=== PATIENT | female | born 1985 | race African-American/Black ===

== ENCOUNTER 2017-05-19 13:49 | Emergency (ER) | payer SELFPAY ==
--- NOTE | 2017-05-19 14:52 | UC ---
Respiratory Complaint HPI - HPI Summary HPI Summary: 6 DAYS OF COUGH AND CHEST TIGHTNESS WITH COUGH. NO SOB. NO FEVER, ST, EAR PAIN , N/V/D. [facility] AND GIVEN PCN VK. STATES SHE DOES NOT FEEL LIKE IT IS WORKING. IS 2 MONTHS . - History of Current Complaint Chief Complaint: UCRespiratory Stated Complaint: COUGH Time Seen by Provider: 05/19/17 14:37 Hx Obtained From: Patient Hx Last Menstrual Period: 03/20/17 Onset/Duration: Gradual Onset, Lasting Days, Still Present Timing: Constant Severity Initially: Moderate Severity Currently: Moderate Pain Intensity: 4 Pain Scale Used: 0-10 Numeric Character: Cough: Productive - OCCASIONALLY Aggravating Factors: Nothing Alleviating Factors: Nothing Associated Signs And Symptoms: Positive: URI. Negative: Dyspnea, Fever, Chills , Pleuritic Chest Pain, Wheezing, Hemoptysis, Dizziness, Calf Pain, Calf Swelling, Edema, Nasal Congestion, Hoarseness, Sinus Discomfort - Allergies/Home Medications Allergies/Adverse Reactions: Allergies Allergy/AdvReac Type Severity Reaction Status Date / Time No Known Allergies Allergy Verified 05/19/17 13:53 Home Medications: Home Medications Penicillin VK TAB* [Penicillin VK 250 mg Tab*] 250 mg PO QID 05/19/17 [History Confirmed 05/19/17] PMH/Surg Hx/FS Hx/Imm Hx Previously Healthy: Yes - Surgical History Surgical History: None - Family History Known Family History: Negative: Hypertension, Diabetes - Social History Alcohol Use: None Substance Use Type: None Smoking Status (MU): Never Smoked Tobacco Review of Systems Constitutional: Negative Respiratory: Cough Cardiovascular: Negative Gastrointestinal: Negative Genitourinary: Negative All Other Systems Reviewed And Are Negative: Yes Physical Exam Triage Information Reviewed: Yes Appearance: Well-Appearing, No Pain Distress, Well-Nourished Vital Signs: Initial Vital Signs Temp 98.6 F 05/19/17 13:55 Pulse 85 05/19/17 13:55 Resp 18 05/19/17 13:55 Pulse Ox 100 05/19/17 13:55 Vital Signs Reviewed: Yes Eyes: Positive: Conjunctiva Clear ENT: Positive: Hearing grossly normal, Pharynx normal, TMs normal Neck: Positive: Supple, Nontender, No Lymphadenopathy Respiratory Exam: Normal Cardiovascular Exam: Normal Abdomen Description: Positive: Soft Musculoskeletal: Positive: No Edema Neurological: Positive: Alert Psychological: Positive: Age Appropriate Behavior Skin: Negative: rashes UC Diagnostic Evaluation - Laboratory O2 Sat by Pulse Oximetry: 100 Respiratory Course/Dx - Differential Dx/Diagnosis Provider Diagnoses: ACUTE URI Discharge - Discharge Plan Condition: Stable Disposition: HOME Prescriptions: Albuterol HFA INHALER* [Ventolin HFA Inhaler*] 2 puff INH Q4H PRN #1 mdi PRN Reason: Shortness Of Breath Patient Education Materials: Upper Respiratory Infection (ED) Referrals: Carmencita Templeton MD [Medical Doctor] - As Soon As Possible Additional Instructions: ACUTE UPPER RESPIRATORY INFECTION The common cold is a benign self-limited syndrome representing a group of diseases caused by members of several families of viruses. It is the most frequent acute illness in the [place] and throughout the industrialized world. The term "common cold" refers to a mild upper respiratory viral infection involving, to variable degrees, nasal congestion and discharge ( rhinorrhea), sneezing, sore throat, cough, low-grade fever, headache, and malaise. Symptomatic therapy remains the mainstay of common cold treatment. In the absence of convincing evidence of a secondary bacterial infection, antibiotics are not effective in the treatment of the common cold and should not be prescribed. Be advised that the usual course and duration of illness is up to one and a half weeks for patients with a cold, but can last slightly longer; symptoms usually persist longer in smokers. ILLNESS TENDS TO LAST LONGER IN WELL DUE TO YOUR RELATIVE STATE OF IMMUNOSUPPRESSION. FINISH YOUR ANTIBIOTIC TO COMPLETE COURSE. INHALER PRESCRIBED TO HELP OPEN YOUR AIRWAYS. WOULD AVOID UNNECESSARY MEDICATIONS IN ESPECIALLY IN FIRST TRIMESTER. TAKE A VITAMIN WITH 200MG DHA DAILY. I LIKE THE NATURE [employer]ADE BRAND NO NSAIDS IN (IBUPROFEN, NAPROXEN). OKAY TO TAKE ACETAMINOPHEN. FOLLOW-UP WITH [employer].
== END 2017-05-19 15:10 | disposition home or self-care (01) ==
LOC: UCEAST 13:49
DX: J06.9 Acute upper respiratory infection, unspecified (principal)
CPT/HCPCS: 99202; G0463

== ENCOUNTER 2017-05-23 16:44 | Emergency (ER) | payer OTHER ==
[2017-05-23 16:51] VITALS: BP 107/46
--- NOTE | 2017-05-23 17:20 | UC ---
Abdominal Pain Female HPI - HPI Summary HPI Summary: 8 WEEKS FOR LAST TWO DAYS HAS HAD BLOOD TINTED VAGINAL DISCHARGE. NO CHEST PAIN. NO SHORTNESS OF BREATH. COUGH THREE DAYS AGO. ARRIVED FROM [facility]. - History of Current Complaint Chief Complaint: UCAbdominalPain Stated Complaint: ABD PAIN Time Seen by Provider: 05/23/17 16:53 Hx Obtained From: Patient Hx Last Menstrual Period: 03/20/17 Onset/Duration: Gradual Onset, Lasting Days, Still Present Timing: Intermittent Episodes Lasting: Severity Initially: Mild Severity Currently: Mild Radiates to: Other Character: Not Applicable Aggravating Factor(s): Nothing Alleviating Factor(s): Nothing Associated Signs and Symptoms: Positive: Vaginal Bleeding, Other: - 8 WEEKS - Risk Factors Ectopic Risk Factor: Negative Ovarian Torsion Risk Factor: Negative Allergies/Adverse Reactions: Allergies Allergy/AdvReac Type Severity Reaction Status Date / Time No Known Allergies Allergy Verified 05/19/17 13:53 Home Medications: Home Medications Penicillin VK TAB* [Penicillin VK 250 mg Tab*] 250 mg PO QID 05/23/17 [History Confirmed 05/23/17] PMH/Surg Hx/FS Hx/Imm Hx Previously Healthy: Yes - Surgical History Surgical History: None - Family History Known Family History: Negative: Hypertension, Diabetes, Blood Disorder - Social History Occupation: Unemployed Lives: With Family Alcohol Use: None Substance Use Type: None Smoking Status (MU): Never Smoked Tobacco Review of Systems Constitutional: Negative Skin: Negative Eyes: Negative ENT: Negative Respiratory: Cough Cardiovascular: Negative Gastrointestinal: Negative Genitourinary: Other - VAGINAL BLEEDING IN CONTEXT OF Motor: Negative Neurovascular: Negative Musculoskeletal: Negative Neurological: Negative Psychological: Negative All Other Systems Reviewed And Are Negative: Yes Physical Exam Triage Information Reviewed: Yes Appearance: Well-Appearing, No Pain Distress, Well-Nourished Vital Signs: Initial Vital Signs Temp 99.0 F 05/23/17 16:48 Pulse 72 05/23/17 16:48 Resp 18 05/23/17 16:48 BP 107/46 05/23/17 16:48 Pulse Ox 100 05/23/17 16:48 Vital Signs Reviewed: Yes Eye Exam: Normal ENT Exam: Normal Dental Exam: Normal Neck exam: Normal Respiratory Exam: Normal Cardiovascular Exam: Normal Cardiovascular: Positive: RRR, No Murmur, Pulses Normal Abdominal Exam: Normal Abdomen Description: Positive: Nontender, No Organomegaly Musculoskeletal Exam: Normal Musculoskeletal: Positive: Strength Intact Neurological Exam: Normal Psychological Exam: Normal Skin Exam: Normal Abd Pain Female Course/Dx - Differential Dx/Diagnosis Differential Diagnosis: Ovarian Cyst, Pelvic Inflammatory Disease, , Renal Colic, Urinary Tract Infection Provider Diagnoses: VAGINAL BLEEDING IN CONTEXT OF FIRST TRIMESTER (8WEEK) - Physician Notification/Consults Discussed Care of Patient With: uPma Mulligan Time Discussed With Above Provider: 17:10 Instructed by Provider To: MD Will See In ED Discharge - Discharge Plan Condition: Stable Disposition: TRANS HIGHER LVL OF CARE FAC Referrals: No Primary Care Phys,NOPCP [Primary Care Provider] - [facility] [Outside]
== END 2017-05-23 17:25 | disposition short-term general hospital (02) ==
LOC: UCEAST 16:44
DX: O20.9 Hemorrhage in early pregnancy, unspecified (principal); Z3A.08 8 weeks gestation of pregnancy
CPT/HCPCS: 81003; 84702; 99212; G0463

== ENCOUNTER 2017-05-23 18:04 | Emergency (ER) | payer SELFPAY ==
[2017-05-23 21:21] LABS: Urine Bacteria Absent (Absent); Urine Bilirubin Negative (Negative); Urine Glucose Negative (Negative); Urine Nitrite Negative (Negative)
[2017-05-23 22:47] LABS: Hematocrit 37 % (35-47); Hemoglobin 12.6 g/dl (12.0-16.0); Mean Corpuscular HGB Conc 34 g/dl (31-36); Mean Corpuscular Hemoglobin 30 pg (27-31); Mean Corpuscular Volume 90 fL (80-97); Mean Platelet Volume 10 um3 (7.4-10.4); Red Blood Count 4.15 10^6/ul (4.0-5.4); Red Cell Distribution Width 14 % (10.5-15); White Blood Count 4.9 10^3/ul (3.5-10.8)
[2017-05-23 23:02] LABS: Albumin 3.8 g/dL (3.2-5.2); BUN/Creatinine Ratio 8.9 (8-20); Calcium 9.2 mg/dL (8.6-10.3); EGFR African American 206.4 (>60); EGFR Non-African American 160.5 (>60); Globulin 3.2 g/dL (2-4); Potassium 3.8 mmol/L (3.5-5.0); Total Bilirubin 0.4 mg/dL (0.2-1.0)
[2017-05-23 23:15] VITALS: BP 92/61
--- NOTE | 2017-05-23 23:35 | ED ---
- HPI Summary HPI Summary: 31F at 8 weeks LMP May 248 weeks. presents with spotting. denies any pain. states this is how had miscarriage in past. denies any n/v/d/c. denies any fever, dysuria. does not know blood type. is new to country [place] couple weeks so has not doctor here. no medical problems. - History of Current Complaint Chief Complaint: EDOBProblems Stated Complaint: SENT FOR ULTRASOUND FROM [facility] Time Seen by Provider: 05/23/17 21:56 Pain Intensity: 0 - Assessment Hx Now: Yes - Allergies/Home Medications Allergies/Adverse Reactions: Allergies Allergy/AdvReac Type Severity Reaction Status Date / Time No Known Allergies Allergy Verified 05/19/17 13:53 PMH/Surg Hx/FS Hx/Imm Hx Endocrine/Hematology History: Denies: Hx Anticoagulant Therapy Cardiovascular History: Denies: Hx Hypertension Infectious Disease History: No Infectious Disease History: Denies: Hx Clostridium Difficile, Hx Hepatitis, Hx Human Immunodeficiency Virus (HIV), Hx of Known/Suspected MRSA, Hx Shingles, Hx Tuberculosis, Hx Known/ Suspected VRE, Hx Known/Suspected VRSA, History Other Infectious Disease, Traveled Outside the [place] in Last 30 Days - Family History Known Family History: Negative: Hypertension, Diabetes, Blood Disorder - Social History Alcohol Use: None Substance Use Type: Reports: None Smoking Status (MU): Never Smoked Tobacco Review of Systems Negative: Fever Negative: Chest Pain Negative: Shortness Of Breath Positive: Other - vaginal spotting All Other Systems Reviewed And Are Negative: Yes Physical Exam - Physical Exam Triage Information Reviewed: Yes Vital Signs Reviewed: Yes Appearance: Positive: Well-Appearing Skin: Positive: Warm, Dry Head/Face: Positive: Normal Head/Face Inspection Eyes: Positive: Normal, EOMI, CARMEN, Conjunctiva Clear ENT: Positive: Normal ENT inspection, Pharynx normal, TMs normal Respiratory/Lung Sounds: Positive: Clear to Auscultation, Breath Sounds Present Cardiovascular: Positive: Normal, RRR Abdomen Description: Positive: Nontender, Soft Bowel Sounds: Positive: Present Diagnostics - Vital Signs Vital Signs Temp Pulse Resp BP Pulse Ox 05/23/17 23:00 69 92/61 100 05/23/17 22:29 71 100 05/23/17 22:27 114/66 05/23/17 20:27 97.7 F 70 16 95/68 100 05/23/17 18:08 98.8 F 70 16 111/62 100 - Laboratory Lab Results: Lab Results 05/23/17 05/23/17 05/23/17 Range/Units 21:05 22:41 22:41 WBC 4.9 (3.5-10.8) 10^3/ul RBC 4.15 (4.0-5.4) 10^6/ul Hgb 12.6 (12.0-16.0) g/dl Hct 37 (35-47) % MCV 90 (80-97) fL MCH 30 (27-31) pg MCHC 34 (31-36) g/dl RDW 14 (10.5-15) % Plt Count 204 (150-450) 10^3/ul MPV 10 (7.4-10.4) um3 Neut % (Auto) 49.4 (38-83) % Lymph % (Auto) 35.4 (25-47) % [place] % (Auto) 11.0 H (1-9) % Eos % (Auto) 3.0 (0-6) % Baso % (Auto) 1.2 (0-2) % Absolute Neuts (auto) 2.4 (1.5-7.7) 10^3/ul Absolute Lymphs (auto) 1.7 (1.0-4.8) 10^3/ul Absolute Monos (auto) 0.5 (0-0.8) 10^3/ul Absolute Eos (auto) 0.1 (0-0.6) 10^3/ul Absolute Basos (auto) 0.1 (0-0.2) 10^3/ul Absolute Nucleated RBC 0.01 10^3/ul Nucleated RBC % 0.1 Sodium 132 L (133-145) mmol/L Potassium 3.8 (3.5-5.0) mmol/L Chloride 105 (101-111) mmol/L Carbon Dioxide 21 L (22-32) mmol/L Anion Gap 6 (2-11) mmol/L BUN 4 L (6-24) mg/dL Creatinine 0.45 L (0.51-0.95) mg/dL Est GFR ( Amer) 206.4 (>60) Est GFR (Non-Af Amer) 160.5 (>60) BUN/Creatinine Ratio 8.9 (8-20) Glucose 88 (70-100) mg/dL Calcium 9.2 (8.6-10.3) mg/dL Total Bilirubin 0.40 (0.2-1.0) mg/dL AST 14 (13-39) U/L ALT 8 (7-52) U/L Alkaline Phosphatase 47 (34-104) U/L Total Protein 7.0 (6.4-8.9) g/dL Albumin 3.8 (3.2-5.2) g/dL Globulin 3.2 (2-4) g/dL Albumin/Globulin Ratio 1.2 (1-3) Beta HCG, Quant 88665.00 mIU/mL Urine Color Yellow Urine Appearance Clear Urine pH 7.0 (5-9) Ur Specific [place] 1.009 L (1.010-1.030) Urine Protein Negative (Negative) Urine Ketones Negative (Negative) Urine Blood 1+ H (Negative) Urine Nitrate Negative (Negative) Urine Bilirubin Negative (Negative) Urine Urobilinogen Negative (Negative) Ur Leukocyte Esterase Negative (Negative) Urine WBC (Auto) Trace(0-5/hpf) (Absent) Urine RBC (Auto) Trace(0-2/hpf) (Absent) Ur Squamous Epith Cells Present H (Absent) Urine Bacteria Absent (Absent) Urine Glucose Negative (Negative) Blood Type 05/23/17 Range/Units 22:41 WBC (3.5-10.8) 10^3/ul RBC (4.0-5.4) 10^6/ul Hgb (12.0-16.0) g/dl Hct (35-47) % MCV (80-97) fL MCH (27-31) pg MCHC (31-36) g/dl RDW (10.5-15) % Plt Count (150-450) 10^3/ul MPV (7.4-10.4) um3 Neut % (Auto) (38-83) % Lymph % (Auto) (25-47) % [place] % (Auto) (1-9) % Eos % (Auto) (0-6) % Baso % (Auto) (0-2) % Absolute Neuts (auto) (1.5-7.7) 10^3/ul Absolute Lymphs (auto) (1.0-4.8) 10^3/ul Absolute Monos (auto) (0-0.8) 10^3/ul Absolute Eos (auto) (0-0.6) 10^3/ul Absolute Basos (auto) (0-0.2) 10^3/ul Absolute Nucleated RBC 10^3/ul Nucleated RBC % Sodium (133-145) mmol/L Potassium (3.5-5.0) mmol/L Chloride (101-111) mmol/L Carbon Dioxide (22-32) mmol/L Anion Gap (2-11) mmol/L BUN (6-24) mg/dL Creatinine (0.51-0.95) mg/dL Est GFR ( Amer) (>60) Est GFR (Non-Af Amer) (>60) BUN/Creatinine Ratio (8-20) Glucose (70-100) mg/dL Calcium (8.6-10.3) mg/dL Total Bilirubin (0.2-1.0) mg/dL AST (13-39) U/L ALT (7-52) U/L Alkaline Phosphatase (34-104) U/L Total Protein (6.4-8.9) g/dL Albumin (3.2-5.2) g/dL Globulin (2-4) g/dL Albumin/Globulin Ratio (1-3) Beta HCG, Quant mIU/mL Urine Color Urine Appearance Urine pH (5-9) Ur Specific [place] (1.010-1.030) Urine Protein (Negative) Urine Ketones (Negative) Urine Blood (Negative) Urine Nitrate (Negative) Urine Bilirubin (Negative) Urine Urobilinogen (Negative) Ur Leukocyte Esterase (Negative) Urine WBC (Auto) (Absent) Urine RBC (Auto) (Absent) Ur Squamous Epith Cells (Absent) Urine Bacteria (Absent) Urine Glucose (Negative) Blood Type O Positive Result Diagrams: 05/23/17 22:41 05/23/17 22:41 Lab Statement: Any lab studies that have been ordered have been reviewed, and results considered in the medical decision making process. - Ultrasound No standard instances Ultrasound Interpretation: Positive (See Comments) Ultrasound Interpretation Completed By: Radiologist - single live intrauterine pregancy, HR 172, small subchorionic hemmorrhage Course/Dx - Course Course Of Treatment: 31F at 8 weeks LMP February 248 weeks. presents with spotting. denies any pain. states this is how had miscarriage in past. denies any n/v/d/c. denies any fever, dysuria. does not know blood type. [place] country [place] so has not doctor here. on exam nontender. O positive. u /s shows subchoronic hemorrhage. explained results to patient and gave referral to obgyn. patient understands and agrees with plan. - Differential Diagnosis/HQI/PQRI: Spontaneous , Threatened , Intrauterine , Subchorionic Hemorrhage - Diagnoses Provider Diagnoses: Vaginal bleeding in Discharge - Discharge Plan Condition: Good Disposition: HOME Patient Education Materials: Subchorionic Hemorrhage (ED) Referrals: Vaughn Vasquez MD [Medical Doctor] - Additional Instructions: Follow up with OBGYN as will need repeat HCG level drawn to trend Return to ED if develop severe abdominal pain, fever, severe bleeding with symptoms such as lightheadedness or any new or worsening symptoms
--- NOTE | 2017-05-24 07:39 | RAD ---
HISTORY: Vaginal bleeding in the first trimester COMPARISONS: None TECHNIQUE: Multiple transverse and longitudinal ultrasound images were obtained of the pelvis using grayscale, color flow, spectral and M-mode sonographic imaging. FINDINGS: UTERUS: The uterus is normal in shape, size, contour, and echotexture. GESTATION: There is a single live intrauterine gestation. The crown-rump length measures 2.9 cm yielding a gestational age of 9 weeks and 6 days. The mean gestational sac diameter measures 3.6 centimeters yielding a gestational age of 9 weeks and 0 days. There is a heterogeneously echogenic subchorionic fluid collection measuring 5.7 x 3.2 x 3.3 cm. cardiac motion is detected at a rate of 172 beats per minute. CUL-DE-SAC: There is no free fluid within the cul-de-sac. RIGHT OVARY: The right ovary measures 3.8 x 1.7 x 3.6 cm. LEFT OVARY: The left ovary measures 2.8 x 2.2 x 3.5 cm. Within the left ovary there is an anechoic and avascular hypoechogenicity measuring 2 cm in greatest dimension most consistent with a corpus luteum. IMPRESSION: 1. Single live intrauterine gestation with a crown-rump length yielding a gestational age of 9 weeks and 6 days. 2. Subchorionic hematoma.
== END 2017-05-24 00:10 | disposition home or self-care (01) ==
LOC: ED 18:04
DX: O46.8X1 Other antepartum hemorrhage, first trimester (principal); Z3A.08 8 weeks gestation of pregnancy
CPT/HCPCS: 36415; 76801; 80053; 81003; 81015; 84702; 85025; 86900; 86901; 99282

== ENCOUNTER 2017-05-26 10:43 | Emergency (ER) | payer SELFPAY ==
--- NOTE | 2017-05-26 12:54 | RAD ---
Indication: Bleeding. . Real-time sonography of the pelvis was performed. There is a single intrauterine gestation with a crown-rump length of 2.8 cm corresponding to gestational age of 9 weeks 5 days. Estimated date of delivery is December 27, 2017. heart activity is noted at 1-70 4 to 179 bpm. Amniotic fluid is within normal limits. There is a small subchorionic hemorrhage measuring 2.3 x 0.7 x 1.6 cm. When compared to previous exam of May 23, 2017 this appears to be decreasing in size. Right ovary measures 4.2 x 2.5 x 2.4 cm. Left ovary measures 3.2 x 2.5 x 2.0 cm. IMPRESSION: There is suggestion of decreasing size of the subchorionic hematoma when compared to previous exam of May 23, 2017.
[2017-05-26 13:37] LABS: Urine Bacteria Absent (Absent); Urine Bilirubin Negative (Negative); Urine Glucose Negative (Negative); Urine Nitrite Negative (Negative)
[2017-05-26 14:02] LABS: Hematocrit 37 % (35-47); Hemoglobin 12.6 g/dl (12.0-16.0); Mean Corpuscular HGB Conc 34 g/dl (31-36); Mean Corpuscular Hemoglobin 31 pg (27-31); Mean Corpuscular Volume 90 fL (80-97); Mean Platelet Volume 10 um3 (7.4-10.4); Red Blood Count 4.11 10^6/ul (4.0-5.4); Red Cell Distribution Width 13 % (10.5-15); White Blood Count 6.8 10^3/ul (3.5-10.8)
[2017-05-26 14:16] LABS: Albumin 3.8 g/dL (3.2-5.2); BUN/Creatinine Ratio 12.5 (8-20); Calcium 9.4 mg/dL (8.6-10.3); EGFR African American 191.6 (>60); EGFR Non-African American 148.9 (>60); Globulin 3.3 g/dL (2-4); Potassium 3.7 mmol/L (3.5-5.0); Total Bilirubin 0.5 mg/dL (0.2-1.0); Total Protein 7.1 g/dL (6.4-8.9)
--- NOTE | 2017-05-26 14:19 | ED ---
Logan Gottlieb Benjamin, scribed for Leanna Mcgraw MD on 05/26/17 at 1223 . GI/ HPI - HPI Summary HPI Summary: 31yo female who is currently 9 weeks (A2) with her fourth c/o vaginal bleeding. Pt was seen on Wednesday for vaginal spotting but returns today as she continues to having spotting and now she also has abdominal pain. - History of Current Complaint Chief Complaint: EDVaginalBleeding Time Seen by Provider: 05/26/17 11:59 Stated Complaint: VAG BLEEDING Hx Obtained From: Patient, Family/Hair Weaver - Hx Last Menstrual Period: 03/20/17 Onset/Duration: Started Days Ago, Still Present Timing: Intermittent Severity: Mild Current Severity: Mild Vaginal Bleeding Description: Bright Red Pain Intensity: 0 Location of Pain: Suprapubic Associated Signs and Symptoms: Positive: Abdominal Pain. Negative: Back Pain, Dizziness Additional Signs & Symptoms: Positive: Vaginal Bleeding - spotting - Allergy/Home Medications Allergies/Adverse Reactions: Allergies Allergy/AdvReac Type Severity Reaction Status Date / Time No Known Allergies Allergy Verified 05/19/17 13:53 PMH/Surg Hx/FS Hx/Imm Hx Endocrine/Hematology History: Denies: Hx Anticoagulant Therapy Cardiovascular History: Denies: Hx Hypertension Infectious Disease History: No Infectious Disease History: Denies: Hx Clostridium Difficile, Hx Hepatitis, Hx Human Immunodeficiency Virus (HIV), Hx of Known/Suspected MRSA, Hx Shingles, Hx Tuberculosis, Hx Known/ Suspected VRE, Hx Known/Suspected VRSA, History Other Infectious Disease, Traveled Outside the [place] in Last 30 Days - Family History Known Family History: Negative: Hypertension, Diabetes, Blood Disorder - Social History Occupation: Employed Full-time Lives: With Family Alcohol Use: None Substance Use Type: Reports: None Smoking Status (MU): Never Smoked Tobacco Review of Systems Constitutional: Negative Eyes: Negative ENT: Negative Cardiovascular: Negative Respiratory: Negative Positive: Abdominal Pain. Negative: Vomiting Positive: other - vaginal spotting Musculoskeletal: Negative Skin: Negative Neurological: Negative Psychological: Normal All Other Systems Reviewed And Are Negative: Yes Physical Exam Triage Information Reviewed: Yes Vital Signs On Initial Exam: Initial Vitals Temp Pulse Resp BP Pulse Ox 98.2 F 75 14 115/60 100 05/26/17 10:44 05/26/17 10:44 05/26/17 10:44 05/26/17 10:44 05/26/17 10:44 Vital Signs Reviewed: Yes Appearance: Positive: Well-Appearing, No Pain Distress, Well-Nourished Skin: Positive: Warm, Skin Color Reflects Adequate Perfusion, Dry - [place] Coma Scale Coma Scale Total: 15 Diagnostics - Vital Signs Vital Signs Temp Pulse Resp BP Pulse Ox 05/26/17 10:44 98.2 F 75 14 115/60 100 - Laboratory Lab Results: Lab Results 05/26/17 05/26/17 05/26/17 Range/Units 12:45 12:45 13:15 WBC 6.8 (3.5-10.8) 10^3/ul RBC 4.11 (4.0-5.4) 10^6/ul Hgb 12.6 (12.0-16.0) g/dl Hct 37 (35-47) % MCV 90 (80-97) fL MCH 31 (27-31) pg MCHC 34 (31-36) g/dl RDW 13 (10.5-15) % Plt Count 186 (150-450) 10^3/ul MPV 10 (7.4-10.4) um3 Neut % (Auto) 65.7 (38-83) % Lymph % (Auto) 22.7 L (25-47) % [place] % (Auto) 9.3 H (1-9) % Eos % (Auto) 1.5 (0-6) % Baso % (Auto) 0.8 (0-2) % Absolute Neuts (auto) 4.4 (1.5-7.7) 10^3/ul Absolute Lymphs (auto) 1.5 (1.0-4.8) 10^3/ul Absolute Monos (auto) 0.6 (0-0.8) 10^3/ul Absolute Eos (auto) 0.1 (0-0.6) 10^3/ul Absolute Basos (auto) 0.1 (0-0.2) 10^3/ul Absolute Nucleated RBC 0.01 10^3/ul Nucleated RBC % 0.1 Sodium 134 (133-145) mmol/L Potassium 3.7 (3.5-5.0) mmol/L Chloride 105 (101-111) mmol/L Carbon Dioxide 22 (22-32) mmol/L Anion Gap 7 (2-11) mmol/L BUN 6 (6-24) mg/dL Creatinine 0.48 L (0.51-0.95) mg/dL Est GFR ( Amer) 191.6 (>60) Est GFR (Non-Af Amer) 148.9 (>60) BUN/Creatinine Ratio 12.5 (8-20) Glucose 82 (70-100) mg/dL Calcium 9.4 (8.6-10.3) mg/dL Total Bilirubin 0.50 (0.2-1.0) mg/dL AST 13 (13-39) U/L ALT 7 (7-52) U/L Alkaline Phosphatase 49 (34-104) U/L Total Protein 7.1 (6.4-8.9) g/dL Albumin 3.8 (3.2-5.2) g/dL Globulin 3.3 (2-4) g/dL Albumin/Globulin Ratio 1.2 (1-3) Beta HCG, Quant 39352.00 mIU/mL Urine Color Straw Urine Appearance Clear Urine pH 6.0 (5-9) Ur Specific [place] 1.004 L (1.010-1.030) Urine Protein Negative (Negative) Urine Ketones Negative (Negative) Urine Blood 3+ H (Negative) Urine Nitrate Negative (Negative) Urine Bilirubin Negative (Negative) Urine Urobilinogen Negative (Negative) Ur Leukocyte Esterase Negative (Negative) Urine WBC (Auto) Trace(0-5/hpf) (Absent) Urine RBC (Auto) Trace(0-2/hpf) (Absent) Ur Squamous Epith Cells Present H (Absent) Urine Bacteria Absent (Absent) Urine Glucose Negative (Negative) Result Diagrams: 05/26/17 12:45 05/26/17 12:45 Lab Statement: Any lab studies that have been ordered have been reviewed, and results considered in the medical decision making process. - Ultrasound No standard instances Ultrasound Interpretation: No Acute Changes - US PREG TRANSVAGINAL IMPRESSION: There is suggestion of decreasing size of the subchorionic hematoma when compared to previous exam of May 23, 2017. Ultrasound Interpretation Completed By: Radiologist Re-Evaluation - Re-Evaluation First Eval Re-Evaluation Time: 13:50 Comment: Discussed lab and imaging results with the pt, as well as pt's course of treatment and disposition. GIGU Course/Dx - Course Course Of Treatment: Reviewed pt's medications list and allergies. Blood pressure noted. Pt had blood type test a few days ago, which came back O+. Discussed with Dr. Templeton (HISTORIC SITE ADMINISTRATOR) at 1405 for consult and to ask if possible to reschedule appointment for a closer date. Long discussion with pt that there isn't anything including a pill that can guarantee that the fetus will do well. Jareth says it is likely impossible to get her in any sooner than wed - Diagnoses Provider Diagnoses: Vaginal bleeding, Threatened miscarriage Discharge - Discharge Plan Condition: Stable Disposition: HOME Patient Education Materials: Threatened Miscarriage (ED), First Trimester Vaginal Bleed (ED) Referrals: No Primary Care Phys,NOPCP [Primary Care Provider] - The documentation as recorded by the Logan victor Benjamin accurately reflects the service I personally performed and the decisions made by me, Leanna Mcgraw MD.
[2017-05-26] MEDS ORDERED: Acetaminophen TAB* 325 MG PO ONE (14:50)
[2017-05-26] MEDS ORDERED: Acetaminophen TAB* 325 MG ONE (14:51)
[2017-05-26 14:59] VITALS: BP 112/58
== END 2017-05-26 14:57 | disposition home or self-care (01) ==
LOC: ED 10:43
DX: O20.0 Threatened abortion (principal); R10.30 Lower abdominal pain, unspecified; Z3A.09 9 weeks gestation of pregnancy
CPT/HCPCS: 36415; 76817; 80053; 81003; 81015; 84702; 85025; 99282; A9270-GY

== ENCOUNTER 2017-05-28 11:13 | Day surgery (SDC) | payer OTHER ==
[2017-05-28 13:02] LABS: Hematocrit 28 % (35-47); Hemoglobin 9.4 g/dl (12.0-16.0); Mean Corpuscular HGB Conc 34 g/dl (31-36); Mean Corpuscular Hemoglobin 30 pg (27-31); Mean Corpuscular Volume 90 fL (80-97); Mean Platelet Volume 10 um3 (7.4-10.4); Red Blood Count 3.08 10^6/ul (4.0-5.4); Red Cell Distribution Width 14 % (10.5-15)
[2017-05-28] MEDS ORDERED: Morphine INJ* 4 MG/ML 1 ML CARPUJECT IV ONE (13:12)
[2017-05-28 13:19] LABS: ALT 8 U/L (7-52); Albumin 3.7 g/dL (3.2-5.2); Alkaline Phosphatase 46 U/L (34-104); BUN/Creatinine Ratio 10.9 (8-20); Blood Urea Nitrogen 5 mg/dL (6-24); CO2 Carbon Dioxide 20 mmol/L (22-32); Calcium 8.9 mg/dL (8.6-10.3); Chloride 106 mmol/L (101-111); EGFR African American 201.2 (>60); EGFR Non-African American 156.4 (>60); Glucose 75 mg/dL (70-100); Sodium 134 mmol/L (133-145); Total Protein 6.7 g/dL (6.4-8.9)
[2017-05-28 13:55] LABS: Anion Gap 8 mmol/L (2-11)
--- NOTE | 2017-05-28 13:55 | RAD ---
Indication: History of miscarriage. Real-time sonography of the pelvis was performed less than transabdominal technique. There is echogenic material with fluid noted in the cervix just within the external os. This is consistent with an impending miscarriage. The ovaries are unremarkable. Patient refused endovaginal ultrasound. IMPRESSION: There appears to be echogenic material and fluid at the external os which is felt to represent products of conception and impending miscarriage.
[2017-05-28 14:30] LABS: AST 10 U/L (13-39)
[2017-05-28] MEDS ORDERED: Misoprostol TAB* 200 MCG PO ONE (16:25)
[2017-05-28] MEDS ORDERED: Morphine INJ* 2 MG/ML 1 ML CARPUJECT IV ONE (16:26)
[2017-05-28] MEDS ORDERED: ceFOXitin 2 GM IVPREMIX* 2 GM/50 ML BAG ONE (17:58)
[2017-05-28] MEDS ORDERED: fentaNYL* 50 MCG/ML 2 ML VIAL (100 MCG VIAL) ONE (17:58)
[2017-05-28] MEDS ORDERED: Lidocaine 2% PF * 5 ML VIAL ONE (17:59)
[2017-05-28] MEDS ORDERED: Ondansetron INJ* 2 MG/ML VIAL ONE (17:59)
[2017-05-28] MEDS ORDERED: Midazolam* 1 MG/ML 5 ML VIAL (5 MG) ONE (17:59)
[2017-05-28] MEDS ORDERED: Propofol* 10 MG/ML 20 ML BTL IV PUSH ONE (17:59)
[2017-05-28] MEDS ORDERED: Ketorolac INJ* 30 MG/ML 1 ML VIAL ONE (17:59)
[2017-05-28] MEDS ORDERED: Chloroprocaine 2%* 20 ML VIAL ONE (18:23)
[2017-05-28] MEDS ORDERED: OXYTOCIN* 10 UNITS/ML 1 ML VIAL ONE (18:50)
[2017-05-28] MEDS ORDERED: DiMENhydriNATE IV* 50 MG/ML VIAL IV PUSH PRN (19:03)
[2017-05-28] MEDS ORDERED: oxyCODONE TAB* 5 MG TAB PO PRN (19:03)
[2017-05-28] MEDS ORDERED: Acetaminophen TAB* 325 MG PO PRN (19:03)
[2017-05-28 21:06] VITALS: BP 115/75
--- NOTE | 2017-05-29 00:04 | ED ---
Seema Gottlieb SooYoung, scribed for Jessica Ball MD on 05/28/17 at 1232 . GI/ HPI - HPI Summary HPI Summary: A 31 y/o F presents to ED with c/o vaginal bleeding onset yesterday. Pert PMHx: pt was 9 weeks and states she had a miscarriage yesterday, described as she saw tissue having been discharged, most of which went down the toilet. Associated sx: suprapubic pain. Rates pain as 10 out of 10 at bedside. A3, two previous miscarriages in [facility]. NKA. Pt has only arrived from [facility] two weeks ago and does not have a PCP. Was seen in the ED on 05/25/17, had US showing subchorionic hemorrhage and was DC'd home to /U with OB this week. Was also seen in UC and ED on 05/23/17 with vag spotting and had US with subchorionic hemorrhage. Blood type is O+. - History of Current Complaint Chief Complaint: EDVaginalBleeding Time Seen by Provider: 05/28/17 12:23 Stated Complaint: VAG BLEEDING Hx Obtained From: Patient Hx Last Menstrual Period: 03/20/17 Onset/Duration: Started Days Ago - yesterday, Atraumatic, Still Present Timing: Constant Severity: Moderate Current Severity: Severe Vaginal Bleeding Description: Dark Red, Clots Number of Pads per Hour: 1 Pain Intensity: 10 - out of 10 Location of Pain: Suprapubic Pain Characteristics: Cramping Associated Signs and Symptoms: Positive: Abdominal Pain - suprapubic Additional Signs & Symptoms: Positive: Vaginal Bleeding, Positive Test , Miscarriage, - 4, Para - 1, First Day of Last Menstral Period - Aggravating Factor(s): Nothing Alleviating Factor(s): Nothing - Allergy/Home Medications Allergies/Adverse Reactions: Allergies Allergy/AdvReac Type Severity Reaction Status Date / Time No Known Allergies Allergy Verified 05/28/17 17:48 PMH/Surg Hx/FS Hx/Imm Hx Previously Healthy: Yes Endocrine/Hematology History: Denies: Hx Anticoagulant Therapy Cardiovascular History: Denies: Hx Hypertension - Surgical History Surgery Procedure, Year, and Place: no surg hx Infectious Disease History: Denies: Hx Clostridium Difficile, Hx Hepatitis, Hx Human Immunodeficiency Virus (HIV), Hx of Known/Suspected MRSA, Hx Shingles, Hx Tuberculosis, Hx Known/ Suspected VRE, Hx Known/Suspected VRSA, History Other Infectious Disease, Traveled Outside the [place] in Last 30 Days - Family History Known Family History: Negative: Hypertension, Diabetes, Blood Disorder - Social History Occupation: Unemployed Lives: With Family - and 4 yo son Alcohol Use: None Hx Substance Use: No Substance Use Type: Reports: None Hx Tobacco Use: No Smoking Status (MU): Never Smoked Tobacco Review of Systems Negative: Fever Cardiovascular: Negative Respiratory: Negative Positive: Abdominal Pain Positive: discharge - vaginal bleeding Neurological: Negative Psychological: Normal All Other Systems Reviewed And Are Negative: Yes Physical Exam Triage Information Reviewed: Yes Vital Signs On Initial Exam: Initial Vitals Temp Pulse Resp BP Pulse Ox 99 F 108 20 100/61 100 05/28/17 11:23 05/28/17 11:23 05/28/17 11:23 05/28/17 11:23 05/28/17 11:23 Vital Signs Reviewed: Yes Appearance: Positive: Well-Appearing, Well-Nourished, Pain Distress Skin: Positive: Warm, Skin Color Reflects Adequate Perfusion Head/Face: Positive: Normal Head/Face Inspection Eyes: Positive: Conjunctiva Clear ENT: Positive: Normal ENT inspection Neck: Positive: Supple Respiratory/Lung Sounds: Positive: Clear to Auscultation, Breath Sounds Present , Other - no respiratory distress Cardiovascular: Positive: RRR, Other - pulses normal, brisk capillary refill. Negative: Murmur Abdomen Description: Positive: Soft, Other: - Suprapubic tenderness. Negative: Nontender, Distended, Guarding, McBurney's Point Tenderness, Peritoneal Signs, Pulsatile Mass Pelvic Exam: Positive: external exam normal, active bleeding, blood, other - copious amounts of blood, clots; can see and feel probable products of conception present in vagina Musculoskeletal: Positive: Strength/ROM Intact Neurological: Positive: Sensory/Motor Intact, Alert, Oriented to Person Place, Time, Facial Symmetry, Speech Normal Psychiatric: Positive: Normal Diagnostics - Vital Signs Vital Signs Temp Pulse Resp BP Pulse Ox 05/28/17 11:23 99 F 108 20 100/61 100 - Laboratory Lab Results: Lab Results 05/28/17 05/28/17 05/28/17 Range/Units 12:50 12:50 12:50 WBC 11.0 H (3.5-10.8) 10^3/ul RBC 3.08 L (4.0-5.4) 10^6/ul Hgb 9.4 L (12.0-16.0) g/dl Hct 28 L (35-47) % MCV 90 (80-97) fL MCH 30 (27-31) pg MCHC 34 (31-36) g/dl RDW 14 (10.5-15) % Plt Count 165 (150-450) 10^3/ul MPV 10 (7.4-10.4) um3 Neut % (Auto) 86.3 H (38-83) % Lymph % (Auto) 8.4 L (25-47) % [place] % (Auto) 4.7 (1-9) % Eos % (Auto) 0.4 (0-6) % Baso % (Auto) 0.2 (0-2) % Absolute Neuts (auto) 9.5 H (1.5-7.7) 10^3/ul Absolute Lymphs (auto) 0.9 L (1.0-4.8) 10^3/ul Absolute Monos (auto) 0.5 (0-0.8) 10^3/ul Absolute Eos (auto) 0 (0-0.6) 10^3/ul Absolute Basos (auto) 0 (0-0.2) 10^3/ul Absolute Nucleated RBC 0.01 10^3/ul Nucleated RBC % 0.1 INR (Anticoag Therapy) 1.07 (0.89-1.11) APTT 23.5 L (26.0-36.3) seconds Sodium 134 (133-145) mmol/L Potassium TNP Chloride 106 (101-111) mmol/L Carbon Dioxide 20 L (22-32) mmol/L Anion Gap 8 (2-11) mmol/L BUN 5 L (6-24) mg/dL Creatinine 0.46 L (0.51-0.95) mg/dL Est GFR ( Amer) 201.2 (>60) Est GFR (Non-Af Amer) 156.4 (>60) BUN/Creatinine Ratio 10.9 (8-20) Glucose 75 (70-100) mg/dL Lactic Acid (0.5-2.0) mmol/L Calcium 8.9 (8.6-10.3) mg/dL Total Bilirubin 0.50 (0.2-1.0) mg/dL AST TNP ALT 8 (7-52) U/L Alkaline Phosphatase 46 (34-104) U/L Total Protein 6.7 (6.4-8.9) g/dL Albumin 3.7 (3.2-5.2) g/dL Globulin 3.0 (2-4) g/dL Albumin/Globulin Ratio 1.2 (1-3) Beta HCG, Quant 7758.00 mIU/mL Blood Type Antibody Screen 05/28/17 05/28/17 05/28/17 Range/Units 12:50 12:50 14:08 WBC (3.5-10.8) 10^3/ul RBC (4.0-5.4) 10^6/ul Hgb (12.0-16.0) g/dl Hct (35-47) % MCV (80-97) fL MCH (27-31) pg MCHC (31-36) g/dl RDW (10.5-15) % Plt Count (150-450) 10^3/ul MPV (7.4-10.4) um3 Neut % (Auto) (38-83) % Lymph % (Auto) (25-47) % [place] % (Auto) (1-9) % Eos % (Auto) (0-6) % Baso % (Auto) (0-2) % Absolute Neuts (auto) (1.5-7.7) 10^3/ul Absolute Lymphs (auto) (1.0-4.8) 10^3/ul Absolute Monos (auto) (0-0.8) 10^3/ul Absolute Eos (auto) (0-0.6) 10^3/ul Absolute Basos (auto) (0-0.2) 10^3/ul Absolute Nucleated RBC 10^3/ul Nucleated RBC % INR (Anticoag Therapy) (0.89-1.11) APTT (26.0-36.3) seconds Sodium (133-145) mmol/L Potassium TNP Chloride (101-111) mmol/L Carbon Dioxide (22-32) mmol/L Anion Gap (2-11) mmol/L BUN (6-24) mg/dL Creatinine (0.51-0.95) mg/dL Est GFR ( Amer) (>60) Est GFR (Non-Af Amer) (>60) BUN/Creatinine Ratio (8-20) Glucose (70-100) mg/dL Lactic Acid 1.1 (0.5-2.0) mmol/L Calcium (8.6-10.3) mg/dL Total Bilirubin (0.2-1.0) mg/dL AST 10 L ALT (7-52) U/L Alkaline Phosphatase (34-104) U/L Total Protein (6.4-8.9) g/dL Albumin (3.2-5.2) g/dL Globulin (2-4) g/dL Albumin/Globulin Ratio (1-3) Beta HCG, Quant mIU/mL Blood Type O Positive Antibody Screen Negative Result Diagrams: 05/28/17 12:50 05/28/17 14:08 Lab Statement: Any lab studies that have been ordered have been reviewed, and results considered in the medical decision making process. - Ultrasound No standard instances Ultrasound Interpretation: Positive (See Comments) - TRANSVAG U/S IMPRESSION: There appears to be echogenic material and fluid at the external os which is felt to represent products of conception and impending miscarriage. Re-Evaluation - Re-Evaluation 1 Re-Evaluation Time: 15:50 Change: Worse Comment: Discussing U/S results with pt and , now present. Pt states pain is returning. Permission given to do pelvic exam. Nurse present and assisting with pelvic exam. 16:10 I was present in room with Dr. Almanzar in ED to confirm pelvic exam findings with his own exam, advises misoprostol 400 mcg po and pain medication. Refers further care to Dr. Templeton as he has an imminent delivery at [facility]. 2 Re-Evaluation Time: 16:48 Change: Unchanged Comment: Letting pt know that Dr. Templeton will be in to see pt. GIGU Course/Dx - Course Course Of Treatment: Allergies noted. Normal BP reading and no follow-up instructions required. Pt is a 31 y/o F presenting with c/o vaginal bleeding onset yesterday. Pert PMHx: pt states had a miscarriage yesterday, she saw tissue having been discharged, most of which went down the toilet. Associated sx : suprapubic pain. Rates pain as 10 out of 10. A3, two previous miscarriages in [place]. NKA. Pt given morphine, cytotec in ED. Lab results show decreased RBC, Hgb, Hct, Lymph %, absolute lymphs, APTT, CO2, BUN, creatinine, AST; and elevated WBC and neutrophils %. Lactic acid is 1.1. TRANSVAG U/S IMPRESSION: There appears to be echogenic material and fluid at the external os which is felt to represent products of conception and impending miscarriage. Pt was seen by both Dr. Jana Almanzar and Dr. Templeton in the ED. Taken to the OR by Dr. Templeton for further evaluation and care. - Diagnoses Differential Diagnoses - Female: Incomplete Provider Diagnoses: Incomplete - Physician Notifications Discussed Care Of Patient With: Zion Almanzar - OB-PC MAINTENANCE TECHNICIAN Time Discussed With Above Provider: 16:06 Instructed by Provider To: MD Will See In ED - will perform pelvic; also seen and examined by Dr. Templeton in ED, taken to OR Discharge - Discharge Plan Condition: Stable Disposition: ADMITTED TO [facility] Consult Consult: 1620: Consult with Dr. Almanzar, OB-PC MAINTENANCE TECHNICIAN Was able to evacuate a lot of clots in ED, wants the pt to be further evaluated by Dr. Templeton, OB-PC MAINTENANCE TECHNICIAN. 1641: Consult with Dr. Templeton, OB-PC MAINTENANCE TECHNICIAN Will see pt in ED. The documentation as recorded by the Seema victor SooYoung accurately reflects the service I personally performed and the decisions made by me, Jessica Ball MD.
--- NOTE | 2017-06-09 04:16 | OP ---
DATE OF OPERATION: 05/28/17 [facility] DATE OF : 81 SURGEON: Zion Almanzar MD CHARGEBACK SPECIALIST: None. ANESTHESIOLOGIST: Elsa Johnson MD ANESTHESIA: Spinal. PRE-OP DIAGNOSIS: Incomplete at 9 weeks. POST-OP DIAGNOSIS: Incomplete at 9 weeks. OPERATIVE PROCEDURE: Dilation and evacuation with suction curettage. ESTIMATED BLOOD LOSS: None. SPECIMEN SENT TO PATHOLOGY: Endometrial curettings and products of conception. IV FLUIDS: She received 600 cc of IV crystalloid fluids. URINE OUTPUT: 20 cc of clear urine. FINDINGS: Exam under anesthesia revealed a normal external genitalia, cervix which was about 2 cm dilated with products of conception at the external os. The uterus sounded to 9 cm in a retroverted position and there were moderate amounts of products of conception removed from within the uterus, and there were no complications during this procedure. DESCRIPTION OF PROCEDURE: The patient was taken to the operating room where she was identified. She was placed on operating table where a spinal anesthetic was obtained without difficulty. She was then placed in dorsal lithotomy position, prepped and draped in normal sterile fashion. At this point , attention was then brought on to the patient's perineum where the bladder was catheterized with a straight catheter and 20 cc of clear urine was emptied from the bladder. The catheter was then removed, a weighted speculum was then inserted into the patient's vagina. The cervix was identified and grasped with a single-toothed tenaculum. Findings were noted as above. At this point, the uterus was then sounded, it sounded to 9 cm and noted to be in a retroverted position, after which a 10-mm curve suction curette was then introduced into the cervix, applied to suction, and suction curettage was then performed. After the suction curettage was deemed to be complete, a sharp curettage was then performed in order to assure complete denudation of the endometrial cavity. At this point, all the instruments were then removed from the patient' s vagina. Sponge, lap, needle counts were correct x2. The specimen was sent to Pathology and the patient was then transferred to recovery room area in stable condition. [id number]/[facility] #: [id number] MTDD
== END 2017-05-28 21:00 | disposition home or self-care (01) ==
LOC: ED 11:13 → OR 17:37
PROVIDERS: ATTEND Obstetrics & Gynecology
DX: O03.4 Incomplete spontaneous abortion without complication (principal); R10.2 Pelvic and perineal pain; N94.9 Unspecified condition associated with female genital organs and menstrual cycle
CPT/HCPCS: 36415; 76817; 80053; 81229; 83605; 84450; 84702; 85025; 85610; 85730; 86850; 86900; 86901; 88271; 88275; 88305; 96374; 96375; 99283; A9270-GY; J0694; J1885; J2250; J2270; J2400; J2405; J2590; J2704; J3010

== ENCOUNTER 2017-12-02 09:06 | Emergency (ER) | payer OTHER ==
[2017-12-02 09:45] VITALS: BP 107/67
--- NOTE | 2017-12-02 10:34 | UC ---
FLU HPI - HPI Summary HPI Summary: 3 days of cough and body aches is 23 weeks and did get a flu vaccine - History of Current Complaint Chief Complaint: UCGeneralIllness Stated Complaint: COUGH SORE THROAT Time Seen by Provider: 12/02/17 10:19 Hx Obtained From: Patient Hx Last Menstrual Period: 07/01/17 ?: No Onset/Duration: Sudden Onset, Lasting Days - 3 Severity Currently: Mild Severity Initially: Mild Pain Intensity: 3 Associated Signs & Symptoms: Positive: Fever, Myalgia, Cough - Allergy/Home Medications Allergies/Adverse Reactions: Allergies Allergy/AdvReac Type Severity Reaction Status Date / Time No Known Allergies Allergy Verified 12/02/17 09:44 Home Medications: Home Medications Vit 108/Iron/Folic AC [ One Tablet] 1 tab PO DAILY 12/02/17 [ History Confirmed 12/02/17] PMH/Surg Hx/FS Hx/Imm Hx Previously Healthy: Yes Other History Of: Negative For: Anticoagulant Therapy - Surgical History Surgical History: None Surgery Procedure, Year, and Place: D&C 2016 - Family History Known Family History: Negative: Hypertension, Diabetes, Blood Disorder - Social History Occupation: Unemployed Lives: With Family Alcohol Use: None Substance Use Type: None Smoking Status (MU): Never Smoked Tobacco Review of Systems Constitutional: Fever Skin: Negative Eyes: Negative ENT: Negative Respiratory: Cough Cardiovascular: Negative Gastrointestinal: Negative Genitourinary: Negative Motor: Negative Neurovascular: Negative Musculoskeletal: Myalgia Neurological: Negative Psychological: Negative Is Patient Immunocompromised?: No All Other Systems Reviewed And Are Negative: Yes Physical Exam Triage Information Reviewed: Yes Appearance: Well-Appearing, No Pain Distress, Well-Nourished Vital Signs: Initial Vital Signs Temp 99.1 F 12/02/17 09:36 Pulse 102 12/02/17 09:36 Resp 20 12/02/17 09:36 BP 107/67 12/02/17 09:36 Pulse Ox 100 12/02/17 09:36 Vital Signs Reviewed: Yes Eye Exam: Normal Eyes: Positive: Conjunctiva Clear ENT Exam: Normal ENT: Positive: Normal ENT inspection, Hearing grossly normal, Pharynx normal, TMs normal, Uvula midline. Negative: Nasal congestion, Tonsillar swelling, Tonsillar exudate, Trismus, Muffled voice, Hoarse voice, Sinus tenderness Dental Exam: Normal Neck exam: Normal Neck: Positive: Supple, Nontender, No Lymphadenopathy Respiratory Exam: Normal Respiratory: Positive: Chest non-tender, Lungs clear, Normal breath sounds, No respiratory distress, No accessory muscle use Cardiovascular Exam: Normal Cardiovascular: Positive: RRR, No Murmur, Pulses Normal, Brisk Capillary Refill Musculoskeletal Exam: Normal Musculoskeletal: Positive: Strength Intact, ROM Intact Neurological Exam: Normal Neurological: Positive: Alert, Muscle Tone Normal Psychological Exam: Normal Skin Exam: Normal Diagnostics - Laboratory Diagnostic Studies Completed/Ordered: Influenza A/B (-), RST (-) Flu Course/Dx - Course Course Of Treatment: rest increase fluids, tylenol, saline, throat spray for pain relief follow with as planned - Differential Dx/Diagnosis Provider Diagnoses: Viral Illness,pharyngitis Discharge - Discharge Plan Condition: Stable Disposition: HOME Patient Education Materials: Upper Respiratory Infection (DC), Viral Syndrome ( ED) Referrals: Zion Almanzar MD [Medical Doctor] - 1 Week Additional Instructions: Increase fluids, REST!! Tylenol for pain or fever, cool mist humidifier and saline nasal spray can help to relieve some of the cold symptoms and will have no effect on your baby
== END 2017-12-02 11:15 | disposition home or self-care (01) ==
LOC: UCEAST 09:06
DX: O26.892 Other specified pregnancy related conditions, second trimester (principal); B34.9 Viral infection, unspecified; J02.9 Acute pharyngitis, unspecified; Z3A.23 23 weeks gestation of pregnancy
CPT/HCPCS: 87502; 87651; 99211; G0463

== ENCOUNTER 2018-03-27 18:47 | Inpatient (IN) | payer OTHER ==
[2018-03-27] MEDS ORDERED: Misoprostol TAB* 200 MCG ONE (21:52)
[2018-03-27] MEDS ORDERED: OXYTOCIN* 10 UNITS/ML 1 ML VIAL IM ONE (21:59)
[2018-03-27] MEDS ORDERED: Acetaminophen TAB* 325 MG PO PRN (21:59)
[2018-03-27] MEDS ORDERED: Misoprostol TAB* 200 MCG PR ONE (21:59)
[2018-03-27] MEDS ORDERED: Dibucaine 1% 28.35 GM TUBE PR PRN (21:59)
[2018-03-27] MEDS ORDERED: Witch Hazel PAD* JAR TOPICAL PRN (21:59)
[2018-03-27] MEDS ORDERED: Glycerin ADULT SUPP PR PRN (21:59)
--- NOTE | 2018-03-27 22:09 | HP ---
General Information - General Information Maternal Age: 32 Grav: 5 Para: 1 SAB: 3 IEA: 0 Estimated Due Date: 04/04/18 Determined By: LMP Gestational Age in Weeks and Days: 38 Weeks and 6 Days Maternal Blood Type and Rh: O Positive - Results this Serology/RPR Result: Non-Reactive Rubella Result: Immune HBsAg Result: Negative HIV Result: Negative GBS Culture Result: Negative Past Medical History Delivery History: Hx Uncomplicated Vaginal Delivery Pertinent Past Medical History: See Records - late to care Pertinent Past Surgical History: See Records - D&E and D&C Pertinent Family History: Non-Contributory - Antepartal Records Antepartal Records: Reviewed, Complicated by: - Late to care, anemia Review of Systems Constitutional: Uncomfortable CV Complaint: No Respiratory: Shortness of Breath: No Gastrointestinal: No Nausea/Vomiting Genitourinary: No Dysuria, No Bleeding, No Leaking Fluid Musculoskeletal: Contractions Neurological: No Headache Movement: Normal Exam Allergies/Adverse Reactions: Allergies No Known Allergies Allergy (Verified 03/27/18 20:01) T:98.5, P:89, R:12, BP: 121/74, O2 - Measurements Height: 5 ft 1.02 in Weight: 169 lb Weight in lbs: 169 Body Mass Index (BMI): 31.8 - Exam Abdomen: No Upper Quadrant Pain Breast: Breast Exam Deferred CVA: No CVA Tenderness Extremities: No Edema Heart: Normal Rhythm/Heart Sounds HEENT: No Significant Findings Lungs: Clear Bilaterally Rectal: Rectal Exam Deferred Thyroid: No Thyromegaly Targeted Exam Findings Cervical Exam: 5cm Effacement: Thin, 80% Station: -1 Presenting Part: Vertex Membrane Status: Intact EFM Findings - External Monitor Findings Baseline Heart Rate: 135 External Monitor Findings: Accelerations Present, No Pattern of Variable or Late Decelerations, Variability Moderate, Baseline Stable Contractions: Regular, 45-90 Seconds Contraction Frequency: 4-5 Assessment/Plan - Reason for Visit Reason for Visit: active labor - Plan Plan: Active Labor - Date/Time of Admission Date of Admission: 03/27/18 Time of Admission: 18:49
[2018-03-27] MEDS: Ibuprofen TAB* 600 MG PO PRN (22:15)
[2018-03-28] MEDS: Ibuprofen TAB* 600 MG PO PRN ×4 (04:14→22:11)
[2018-03-28 05:35] LABS: ABS Basophils 0 10^3/ul (0-0.2); ABS Eosinophils 0 10^3/ul (0-0.6); ABS Lymphocytes 1.3 10^3/ul (1.0-4.8); ABS Monocytes 0.9 10^3/ul (0-0.8); ABS Neutrophils 5.6 10^3/ul (1.5-7.7); ABS Nucleated RBC 0 10^3/ul; Eosinophil % 0.6 % (0-6); Hematocrit 36 % (35-47); Hemoglobin 12.4 g/dl (12.0-16.0); Lymphocyte % 16.6 % (25-47); Mean Corpuscular HGB Conc 35 g/dl (31-36); Mean Corpuscular Hemoglobin 31 pg (27-31); Mean Corpuscular Volume 89 fL (80-97); Mean Platelet Volume 9.8 um3 (7.4-10.4); Nucleated Red Blood Cells % 0.2; Platelet Count 125 10^3/ul (150-450); Red Blood Count 4.03 10^6/ul (4.0-5.4); Red Cell Distribution Width 15 % (10.5-15); White Blood Count 7.8 10^3/ul (3.5-10.8)
[2018-03-28] MEDS: Docusate CAP* 100 MG PO SCH ×3 (08:38→22:11)
[2018-03-28] MEDS: Simethicone TAB* 80 MG TAB.CHEW PO SCH ×3 (08:52→17:54)
[2018-03-28] MEDS: Ferrous Gluconate TAB* 324 MG TAB PO SCH ×2 (16:03→19:07)
[2018-03-29] MEDS: Docusate CAP* 100 MG PO SCH ×2 (08:17→13:57)
[2018-03-29] MEDS: Ibuprofen TAB* 600 MG PO PRN ×2 (08:17→13:57)
--- NOTE | 2018-03-29 08:19 | PTEDU ---
Patient Name: MADHAV BARNETT MADHAV BARNETT selected video: Never Ever Shake a Baby to view on 03/29/2018 at 8:19:[address] [email or web address] _
[2018-03-29 08:32] VITALS: BP 104/64
== END 2018-03-29 16:00 | disposition home or self-care (01) | DRG 775 ==
LOC: MCHOBOUT 18:47 → MCHOB 19:38
PROVIDERS: ADMIT Midwife; ATTEND Midwife
PROC: 10E0XZZ Delivery of Products of Conception, External Approach (ICD-10-PCS; principal; 2018-03-27)
PROC: 0HQ9XZZ Repair Perineum Skin, External Approach (ICD-10-PCS; 2018-03-27)
PROC: 10907ZC Drainage of Amniotic Fluid, Therapeutic from Products of Conception, Via Natural or Artificial Opening (ICD-10-PCS; 2018-03-27)
PROC: 4A1HXCZ Monitoring of Products of Conception, Cardiac Rate, External Approach (ICD-10-PCS; 2018-03-27)
DX: O62.3 Precipitate labor (principal); O70.0 First degree perineal laceration during delivery; Z3A.38 38 weeks gestation of pregnancy; Z37.0 Single live birth
CPT/HCPCS: 36415; 85025; A9270-GY